=== PATIENT | male | born 1960 | race Caucasian/White ===

== ENCOUNTER 2022-08-05 15:39 | Emergency (ER) | payer BC, OTHER, SELFPAY ==
--- NOTE | 2022-08-05 16:23 | USR_ITS ---
PROCEDURE INFORMATION: Exam: US Duplex Right Lower Extremity Veins, Limited Exam date and time: 08/05/2022 5:00 PM Age: 61 years old Clinical indication: Pain; Leg, lower; Right; Additional info: Leg pain/swelling TECHNIQUE: Imaging protocol: Real-time Duplex ultrasound of the Right Lower Extremity with 2-D valenzuela scale, color Doppler flow and spectral waveform analysis with image documentation. Limited exam was focused on the right lower extremity veins. COMPARISON: No relevant prior studies available. FINDINGS: Right deep veins: Unremarkable. The common femoral, femoral, proximal profunda femoral and popliteal veins are patent without thrombus. Normal Doppler waveforms. Normal compressibility and/or augmentation response. Right superficial veins: Proximal greater saphenous vein is patent. There is a thrombosed superficial varicose vein in the right calf. Soft tissues: Unremarkable. US/[place] [id number] IMPRESSION: 1. No deep venous thrombosis. 2. Thrombosed superficial varicosity in the right calf.
[2022-08-05 17:45] VITALS: BP 160/97; PULSE 68; RESP 18; TEMP 36.6; O2SAT 94; BMI 25.7
--- NOTE | 2022-08-05 18:12 | ED_ITS ---
HPI - Extremity Problem General: Chief complaint: Extremity Problem,Nontraumatic Stated complaint: Nam sent Time Seen by Provider: 08/05/22 17:51 History of Present Illness: Patient is a 61-year-old male comes to the ED with right calf pain. He was sent here to the ED by Dr. Browning for further evaluation for DVT. Patient says the symptoms started approximately 3 days ago. Denies any recent injury to cause right calf pain. Patient has a history of varicose veins in his lower extremities. Denies any chest pain, shortness of breath or hemoptysis. Associated symptoms: Deny chest pain, fever(s) or rash Review of Systems Const: Denies: fever(s), chills or fatigue Eyes: Denies: change in vision or eye discomfort ENMT: Denies: throat pain, odynophagia, nasal discharge or nasal congestion Card: Denies: chest pain, palpitations, edema, swelling of feet/ankles, dyspnea on exertion or orthopnea Resp: Denies: dyspnea, productive cough or non-productive cough GI: Denies: abdominal pain, nausea, vomiting, diarrhea, constipation or hematochezia : Denies: flank pain, difficulty urinating, dysuria or hematuria Musc: Reports: extremity pain (Right calf pain); Denies: neck pain, back pain or extremity swelling Skin/Breast: Denies: rash or new lesions Neuro: Denies: headache(s), numbness in extremities or weakness in extremities [facility] ED PFSH: Medical History (Updated 08/05/22 @ 23:44 by TWYLA Meyer) No pertinent family history Varicose veins of lower extremity Physical Exam Const: COMMON NORMALS: no acute distress, patient oriented x3, healthy appearing and alert HENMT: COMMON NORMALS: normocephalic HEAD & SCALP: normocephalic MOUTH: Normal oral and palatal mucosa present THROAT: posterior oropharynx normal and uvula midline Neck/C-Spine: COMMON NORMALS: supple GENERAL: Yes normal visual inspection Resp: COMMON NORMALS: normal respiratory effort, No retractions, No use of accessory muscles and clear to auscultation bilaterally AUSCULTATION: clear to auscultation bilaterally Cardio: COMMON NORMALS: regular rate, regular rhythm, S1 normal heart sound present, S2 normal heart sound present, No gallops present (Cardio), No clicks present (Cardio), No murmurs present (Cardio) and Peripheral pulses 2+ throughout RATE: regular rate RHYTHM: regular rhythm HEART SOUNDS: S1 normal heart sound present and S2 normal heart sound present PERIPHERAL PULSES: Peripheral pulses 2+ throughout GI: COMMON NORMALS: Normal to inspection, nondistended, normoactive bowel sounds present, Soft to palpation, non-tender and no masses PALPATION: Yes Soft to palpation : COMMON NORMALS: Yes no CVA tenderness BLADDER/KIDNEY EXAM: Yes no CVA tenderness Back/Pelvis: COMMON NORMALS: no CVA tenderness Extremity: NARRATIVE EXTREMITY EXAM: Patient has many varicose veins throughout right lower leg and calf area. Tenderness to right calf. No pedal edema. GENERAL: Yes calf tenderness (Right calf) Neuro: COMMON NORMALS: patient oriented x3 SENSORIUM/ORIENTATION: Yes alert GAIT: Yes Normal gait present Skin: GENERAL SKIN EXAM: dry skin Course Vital Signs: Vital signs: Vital Signs Temperature 98 F 08/05/22 17:45 Pulse Rate 68 08/05/22 17:45 Respiratory Rate 18 08/05/22 17:45 Blood Pressure 160/97 08/05/22 17:45 Pulse Oximetry 94 08/05/22 17:45 Oxygen Delivery Me thod 08/05/22 17:45 MDM - Extremity (Nontraumatic) Medical Decision Making Patient is a 61-year-old male comes to the ED with right calf tenderness and pain. Denies any injury or trauma. Denies any injury or trauma. Patient was sent here by PCP to be checked for a DVT. Patient denies any chest pain, shortness of breath or hemoptysis. Exam shows some right calf tenderness and many varicose veins in her right calf and right lower leg. No pedal edema noted. Ultrasound venous duplex of right lower extremity shows no DVTs but does note a superficial venous thrombosis. Patient was stable for discharge home and told to follow-up with PCP within the next week for reevaluation. Return to ED precautions given. Patient understood and agreed with plan. Lab Data Radiology Impressions Venous Duplex 08/05/22 16:23 IMPRESSION: 1. No deep venous thrombosis. 2. Thrombosed superficial varicosity in the right calf. Discharge Plan Discharge Patient Disposition: Home Clinical Impression: Superficial vein thrombosis Condition: Stable Discharge Orders: Discharge ED (Routine); Ordered 08/05/22 Ordered By: Costa Jarrell Referrals: Akira Browning MD [Primary Care Provider] - Discharge Diet: Regular Discharge Activity: Increase activity as tolerated Activity Restrictions/Additional Instructions: Follow-up with medical provider as directed in the next 5 to 7 days for reevaluation. Use compression stockings or Pedro wrap to compress lower leg. He can apply cold pack and elevate leg as well to help with symptoms. Continue taking all home medications as previously prescribed. Return to the ER or your medical provider if condition worsens. Please read and understand discharge instructions. Thank you for choosing [facility] for your healthcare needs today. Please realize this is an emergency room and that we are providing you with a medical screening exam and this may not be complete and all inclusive of all the testing and or work up that you may need to determine your ailment or severity of your illness. It is very important that you follow up as instructed or that you return to the Emergency Department should you have concerns or if your condition changes or worsens in any way. 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
== END 2022-08-05 18:24 | disposition home or self-care (01) ==
PROVIDERS: Emergency Provider Physician Assistant; PCP Family Medicine
DX: I82.811 Embolism and thrombosis of superficial veins of right lower extremity (principal)
CPT/HCPCS: 93971; 99284

== ENCOUNTER 2025-08-06 07:33 | Outpatient (CLI) | payer BC, OTHER, SELFPAY ==
--- NOTE | 2025-08-06 | ECG_ITS ---
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 Baseline heart rate was 70 beats per minute. Baseline blood pressure was 149/95 millimeters of mercury. Target heart rate was 156 beats per minute. Maximum heart rate achieved was 164, which was 105 % of the target heart rate. Maximum blood pressure was 197/95 millimeters of mercury. Total exercise time was 7 minutes 17 seconds. Maximum METs achieved was 10.2, maximum VO2 was 35.7. The reason for ending the test was maximum effort achieved. The patient complained of shortness of breath during the stress test, which then resolved at the end of the test. ELECTROCARDIOGRAM: BASELINE: Showed sinus rhythm, normal axis, no significant ST-T changes at the baseline noted. EXERCISE: At the peak exercise level, no significant ST-T changes suggestive of ischemia noted. RECOVERY: During the recovery period, heart rate dropped appropriately. No significant ST-T changes in the recovery suggestive of ischemia noted. CONCLUSION: 1. Exercise capacity good. 2. Heart rate response was appropriate. 3. Blood pressure response was hypertensive. 4. Symptoms not suggestive of ischemia. 5. Electrocardiogram portion of the stress test was not suggestive of ischemia. 6. Nuclear scan will be documented separately. Electronically Signed On 08-08-2025 15:42:39 PERFORMANCE ENGINEER by CARLOS ALBERTO SOOD [email or web address]
[2025-08-06 08:01] VITALS: BMI 26.4
--- NOTE | 2025-08-06 08:01 | NMCV_ITS ---
NM timi perf SPECT r/s* [id number] Obie Ojeda Age: 64 Gender: M : 1960 Exam Date: 08/06/2025 08:48 Ordering Phys: Akira Browning MD Technologist: MARYSOL Laguerre Exam Location: [facility] Indications: cp STRESS TEST Please see separate stress test report in [facility] for full findings IMAGE PROTOCOL Rest/Stress 1 Exercise Day Radiopharmaceutical Dose (mCi) Administration Site Administered by Rest: Tc-99m 10.5 IV MARYSOL Laguerre Stress:Tc-99m 32.7 IV MARYSOL Swartz Rest: 08/06/2025 60 Discovery 630 Stress: 08/06/2025 15 Discovery 630 Radiopharmaceutical was injected at 100% maximum heart rate. Images obtained in supine and prone position. SPECT RESULTS Technical Quality: Good Raw Data Analysis: Normal Image Corrections: No attenuation or motion correction applied Summed Stress Score: 0 Summed Rest Score: 0 Summed Difference Score: 0 PERFUSION FINDINGS Large area of persistently decreased tracer uptake noted on both rest and stress images from the basal to distal inferior and inferolateral wall. FUNCTIONAL RESULTS (calculated via Gated SPECT) Stress Image LV EF (%): 70 Stress EDV (mL):91 TID: 0.72 Stress ESV (mL):27 FUNCTIONAL FINDINGS: There is normal left ventricular systolic function. IMPRESSIONS Large area of old myocardial infarction versus artifact noted in basal to distal inferior wall. In the absence of wall motion abnormality could be an artifact. No significant ischemia noted on this study. Jennifer Suarez MD (Electronically Signed) Final Date: 06 August 2025 14:03 S
[2025-08-06 10:00] VITALS: BP 158/64; PULSE 101
== END 2025-08-06 07:34 | disposition home or self-care (01) ==
LOC: CDL 07:37
PROVIDERS: PCP Family Medicine; Visit Provider Family Medicine
DX: R07.9 Chest pain, unspecified (principal); I25.2 Old myocardial infarction
CPT/HCPCS: 36415; 78452; 93017; A9500